=== PATIENT | female | born 1965 | race Hispanic/Latino ===

== ENCOUNTER 2020-03-17 15:21 | Outpatient (CLI) | payer OTHER ==
--- NOTE | 2020-03-17 16:05 | MMO ---
Bilateral MAMMO Bilat Screen [facility]. CLINICAL HISTORY: Patient is 54 years old and is seen for screening. The patient has no family history of breast cancer. The patient has no personal history of cancer. VIEWS: The views performed were: bilateral craniocaudal with tomosynthesis and bilateral mediolateral oblique with tomosynthesis. FILMS COMPARED: The present examination has been compared to prior imaging studies performed at [facility] on 11/29/2017, and at [facility] on 09/21/2015, 11/10/2016 and 01/03/2019. This study has been interpreted with the assistance of computer-aided detection. MAMMOGRAM FINDINGS: There are scattered fibroglandular densities. There are no suspicious masses, suspicious calcifications, or new areas of architectural distortion. IMPRESSION: THERE IS NO MAMMOGRAPHIC EVIDENCE OF MALIGNANCY. A ROUTINE FOLLOW-UP MAMMOGRAM IN 1 YEAR IS RECOMMENDED. THE RESULTS OF THIS EXAM WERE SENT TO THE PATIENT. ACR BI-RADS Category 1 - Negative MAMMOGRAPHY NOTE: 1. A negative mammogram report should not delay a biopsy if a dominant of clinically suspicious mass is present. 2. Approximately 10% to 15% of breast cancers are not detected by mammography. 3. Adenosis and dense breasts may obscure an underlying neoplasm. Reported by: LINSEY ROMERO MD Electonically Signed: [id number]
== END 2020-03-17 15:22 | disposition home or self-care (01) ==
LOC: BICMAMMO 15:21
PROVIDERS: ATTEND Nurse Practitioner Family
DX: Z12.31 Encounter for screening mammogram for malignant neoplasm of breast (principal)
CPT/HCPCS: 77063; 77067

== ENCOUNTER 2020-04-27 12:13 | Outpatient (CLI) | payer OTHER ==
--- NOTE | 2020-04-27 13:19 | MRI ---
EXAM: MRI of the abdomen without contrast COMPARISON: 05/06/2019 HISTORY: Adrenal adenoma TECHNIQUE: Multiplanar multi sequence MR images were taken of the abdomen without IV contrast. An MRC P was performed. FINDINGS: Liver: No focal liver lesions or intrahepatic ductal dilatation. There is diffuse signal dropout on o ut of phase images. Gallbladder: No filling defects or gallbladder wall thickening. Common bile duct: Normal caliber without filling defects Adrenal glands: Unremarkable. Kidneys: There is a 3.0 cm well-circumscribed left adrenal mass. This loses fat on out of phase imagi ng consistent with a fat-containing adrenal adenoma. Spleen: Unremarkable. Pancreas: Unremarkable. Retroperitoneum: No enlarged lymph nodes Bones: No marrow signal abnormality. IMPRESSION: 1. Left adrenal adenoma 2. Fatty liver
== END 2020-04-27 12:14 | disposition home or self-care (01) ==
LOC: BICMRI 12:13
PROVIDERS: ATTEND Urology
DX: E27.8 Other specified disorders of adrenal gland (principal); D35.02 Benign neoplasm of left adrenal gland; K76.0 Fatty (change of) liver, not elsewhere classified
CPT/HCPCS: 74181

== ENCOUNTER 2021-03-18 15:29 | Outpatient (CLI) | payer OTHER | END 2021-03-18 15:30 | disposition home or self-care (01) | LOC: BICMAMMO 15:29 | PROVIDERS: ATTEND Nurse Practitioner Family | DX: Z12.31 Encounter for screening mammogram for malignant neoplasm of breast (principal) | CPT/HCPCS: 77063; 77067 ==

== ENCOUNTER 2022-11-30 14:53 | Outpatient (CLI) | payer OTHER | END 2022-11-30 14:54 | disposition home or self-care (01) | LOC: BICMAMMO 14:53 | PROVIDERS: ATTEND Family Medicine | DX: Z12.31 Encounter for screening mammogram for malignant neoplasm of breast (principal) | CPT/HCPCS: 77063; 77067 ==

== ENCOUNTER 2025-04-30 10:47 | Outpatient (CLI) | payer OTHER | END 2025-04-30 10:48 | disposition home or self-care (01) | LOC: MRI 10:47 | PROVIDERS: ATTEND Family Medicine | DX: H55.00 Unspecified nystagmus (principal) | CPT/HCPCS: 70551 ==